=== PATIENT | female | born 1985 | race African-American/Black ===

== ENCOUNTER 2019-04-12 21:03 | Emergency (ER) | payer OTHER ==
[~2019-04-12] VITALS: Ht 172.7 cm; Wt 108.2 kg
[2019-04-12 21:44] VITALS: Ht 172.7 cm; Wt 108.2 kg
--- NOTE | 2019-04-12 22:11 | ERD ---
ER Documentation Chief Complaint Chief Complaint swelling below the R ear; ran out of her antihypertensives, too HPI 33-year-old female, presents the emergency department, complaining of edema of the right ear, she is also requesting a refill for her antihypertensive medications losartan and hydrochlorothiazide, in triage her blood pressure is 206/123. The patient denies headaches, no dizziness, no chest pain, no blurred vision, no nausea or vomiting. ROS All systems reviewed and are negative except as per history of present illness. Medications Home Meds Active Scripts Ibuprofen* (Motrin*) 400 Mg Tab, 400 MG PO Q8, #15 TAB Prov:MOISÉS YU MD 04/12/19 Hydrocodone/Acetaminophen ([place] 5-325 Tablet) 1 Each Tablet, 1 TAB PO QHS PRN for PAIN, #7 TAB Prov:MOISÉS YU MD 04/12/19 Cephalexin* (Keflex*) 500 Mg Capsule, 500 MG PO BID for 7 Days, CAP Prov:MOISÉS YU MD 04/12/19 Sulfamethoxazole/Trimethoprim* (Bactrim Ds* Tablet) 1 Each Tablet, 1 TAB PO BID, #14 TAB Prov:MOISÉS YU MD 04/12/19 Hydrochlorothiazide* (Hydrochlorothiazide*) 25 Mg Tab, 25 MG PO DAILY, #30 TAB Prov:MOISÉS YU MD 04/12/19 Losartan Potassium* (Losartan Potassium*) 50 Mg Tablet, 50 MG PO DAILY for 30 Days, TAB Prov:MOISÉS YU MD 04/12/19 Allergies Allergies: Coded Allergies: No Known Allergy (Unverified , 04/12/19) PMhx/Soc The patient reports history of hypertension. Medical and Surgical Hx: pt denies Surgical Hx Hx Alcohol Use: No Hx Substance Use: No Hx Tobacco Use: No Smoking Status: Never smoker FmHx Family History: No diabetes, No coronary disease Physical Exam Vitals Vital Signs Date Temp Pulse Resp B/P (MAP) Pulse Ox O2 O2 Flow FiO2 Time Delivery Rate 04/12/19 66 18 165/106 100 Room Air 23:42 (125) 04/12/19 60 16 208/127 23:00 (154) 04/12/19 98.3 81 18 206/123 99 21:44 (150) Physical Exam Const: No acute distress Head: Atraumatic, tenderness with edema and erythema surrounding the right earlobe. Eyes: Normal Conjunctiva ENT: Normal External Ears, Nose and Mouth. Neck: Full range of motion. No meningismus. Resp: Clear to auscultation bilaterally Cardio: Regular rate and rhythm, no murmurs Abd: Soft, non tender, non distended. Normal bowel sounds Skin: No petechiae or rashes Back: No midline or flank tenderness Ext: No cyanosis, or edema Neur: Awake and alert Psych: Normal Mood and Affect Results 24 hrs Current Medications Medications Dose Sig/Sophia Start Time Status Last (Trade) Ordered Route PRN Stop Time Admin Dose Reason Admin Clonidine 0.1 mg ONCE ONCE 04/12/19 DC 04/12/19 (Catapres) PO 22:30 22:37 04/12/19 22:31 Nicardipine 30 mg ONCE ONCE 04/12/19 DC 04/12/19 HCl PO 22:30 22:36 (Cardene) 04/12/19 22:31 Procedures/MDM Vital signs stable, differential diagnosis include but not limited to: Parotitis, otitis externa, cellulitis, erysipelas, shingles, abscess. Low suspicion for acute systemic infectious process. In regards of her blood pressure, Differential diagnosis considered include uncontrolled hypertension, hypertensive crisis, hypertensive urgency, hypertensive emergency. Low suspicion for acute end organ damage. Physical examination and clinical presentation consistent most likely with skin infection of the right earlobe without evidence of abscess formation. During the ED course the patient remained stable, no new complaints. The patient received treatment with clonidine and nicardipine Results and clinical impression discussed with the patient who agrees with management. The patient is stable to be treated outpatient and will be discharged home with a Rx for antibiotics, anti-inflammatories and pain medications, some side effects of prescribed medications (headache, rash, nausea, vomiting, diarrhea, drowsiness, habituation, bleeding, hypertension, interactions with other medications) were reviewed. The patient was instructed to follow up with the primary care provider in the next 48h. If symptoms persist, worsen or new symptoms develop, then patient should return to the ED immediately. Instructions explained and given directly by me to the patient and relatives wi th acknowledgment and demonstrated understanding. Disclaimer: Inadvertent spelling and grammatical errors are likely due to EHR /dictation software use and do not reflect on the overall quality of patient care. Also, please note that the electronic time recorded on this note does not necessarily reflect the actual time of the patient encounter. Departure Diagnosis: Primary Impression: Skin of right earlobe with infection Additional Impression: Uncontrolled hypertension Condition: Stable Patient Instructions: High Blood Pressure (Hypertension) Additional Instructions: Thank you very much for allowing us to participate in your care. Your health and safety is our top priority at [facility]. Call your primary care doctor TOMORROW for an appointment during the next 2-4 days and bring all the information provided. Have prescriptions filled and follow precisely the directions on the label. If the symptoms get worse and your provider is unavailable, return to the Emerg ency Department immediately. MOISÉS YU MD April 12, 2019 22:11
[2019-04-12] MEDS ORDERED: NICARDipine HCL 30 MG CAPSULE PO ONE (22:30)
[2019-04-12] MEDS ORDERED: LOSA50TA14 PO (23:14)
[2019-04-12] MEDS ORDERED: HYDR25TA6 PO (23:14)
[2019-04-12] MEDS ORDERED: CEPH-443 PO (23:14)
[2019-04-12] MEDS ORDERED: SULF1TAB31 PO (23:14)
[2019-04-12] MEDS ORDERED: IBUP-1561 PO (23:15)
[2019-04-12] MEDS ORDERED: HYDR-4011 PO (23:15)
[2019-04-12 23:42] VITALS: BP 165/106; PULSE 66; RESP 18
== END 2019-04-12 23:43 | disposition home or self-care (01) ==
LOC: FTE 21:03
DX: H60.391 Other infective otitis externa, right ear (principal)
CPT/HCPCS: Z7502; Z7610; 99283